=== PATIENT | male | born 1940 | race Caucasian/White ===

== ENCOUNTER 2021-12-29 18:42 | Emergency (ER) | payer MEDICARE, BC ==
[2021-12-29] MEDS ORDERED: Sodium Chloride 0.9% 10 ML Syringe FLUSH PRN (19:09)
[2021-12-29] MEDS ORDERED: Sodium Chloride 0.9% 1,000 ML IV ONE (20:07)
[2021-12-29 20:31] LABS: CORONAVIRUS COVID-19 NAA POSITIVE (NEGATIVE)
[2021-12-29] MEDS ORDERED: EPINEPHrine 1 MG/ML SDV IM PRN (20:36)
[2021-12-29] MEDS ORDERED: methylPREDNISolone Sodium Succinate 125 MG/2 ML SDV IVPUSH PRN (20:36)
[2021-12-29] MEDS ORDERED: diphenhydrAMINE 50 MG/ML SDV IVPUSH PRN (20:36)
[2021-12-29] MEDS ORDERED: Famotidine 20 MG/2 ML SDV IVPUSH PRN (20:36)
[2021-12-29] MEDS ORDERED: Sodium Chloride 0.9% 10 ML Syringe FLUSH SCH (20:45)
== END 2021-12-29 22:15 | disposition home or self-care (01) ==
LOC: JD.ED 18:42
DX: U07.1 COVID-19 (principal); E86.0 Dehydration; I10 Essential (primary) hypertension
CPT/HCPCS: 0240U; 36415; 71045; 80053; 81001; 83605; 83735; 85025; 86140; 96360; 99284; J3490; J7030; M0222; Q0222